=== PATIENT | male | born 1990 | race Caucasian/White ===

== ENCOUNTER → 2022-07-09 15:42 | Outpatient (REF) | payer MEDICAID, SELFPAY ==
--- NOTE | 2022-07-09 | ECG_ITS ---
Test Reason : methadone, check qt Blood Pressure : / mmHG Vent. Rate : 104 BPM Atrial Rate : 104 BPM P-R Int : 156 ms QRS Dur : 090 ms QT Int : 374 ms P-R-T Axes : 062 083 058 degrees QTc Int : 491 ms Sinus tachycardia Otherwise normal ECG No previous ECGs available Referred By: Sonia Hale Electronically Signed By:ANASTASIA COBB
== END ==
LOC: HO.CARD 15:42
PROVIDERS: PCP Internal Medicine; Visit Provider Family Medicine
DX: Z79.899 Other long term (current) drug therapy (principal)
CPT/HCPCS: 93005